=== PATIENT | female | born 1965 | race Caucasian/White ===

== ENCOUNTER → 2017-01-26 | Outpatient (CLI) | payer BC ==
--- NOTE | 2017-01-26 15:07 | RAD ---
Examination: 2 views of the bilateral knees History: History of chronic bilateral knee pain Comparison: None available Findings: ACL reconstruction changes identified in the right knee. There is severe joint space loss identified in the medial, lateral, patellofemoral compartments of the bilateral knees with large osteophyte formation. There are 2 calcific densities identified posterior to the proximal tibia fibular joint on the left could be soft tissue calcifications or loose bodies in the knee joint. Impression: 1. Severe tricompartmental knee joint osteoarthritis. 2. Two calcific densities identified posterior to the proximal tibiofibular joint on the left could be soft tissue calcifications or loose bodies in the knee joint.
== END | disposition home or self-care (01) ==
LOC: DXRADRC 11:37
PROVIDERS: ATTEND Physician Assistant
DX: M17.0 Bilateral primary osteoarthritis of knee (principal)
CPT/HCPCS: 73560

== ENCOUNTER → 2018-04-24 | Day surgery (SDC) | payer BC ==
[~2018-04-24] MED LIST: CELE200C PO; DEXT30TA2 PO; FLUO20TA11 PO; IV RINGERS SOLUTION,LACTATED 1,000 ML IV SCH; LIDOCAINE 1% PF 2 ML VIAL. ID PRN; OLAN5TAB9 PO; PROPOFOL 10,000 MCG/ML (20ML) VIAL IV ONE; PROPOFOL 20 ML IV ONE; VALS1TAB22 PO
[2018-04-24 13:35] VITALS: BP 155/98
== END | disposition home or self-care (01) ==
LOC: SURG 11:45
PROVIDERS: ATTEND Internal Medicine Gastroenterology
DX: Z12.11 Encounter for screening for malignant neoplasm of colon (principal); K64.8 Other hemorrhoids; Z83.71 Family history of colonic polyps; F41.9 Anxiety disorder, unspecified; F98.8 Other specified behavioral and emotional disorders with onset usually occurring in childhood and adolescence; Z90.49 Acquired absence of other specified parts of digestive tract; Z98.890 Other specified postprocedural states; Z72.89 Other problems related to lifestyle; Z79.899 Other long term (current) drug therapy
CPT/HCPCS: 45378; J2704; J7120

== ENCOUNTER → 2019-07-16 | Outpatient (CLI) | payer SELFPAY ==
[2018-04-24 13:35] VITALS: BP 155/98
[~2019-07-16] MED LIST changes: -IV RINGERS SOLUTION,LACTATED 1,000 ML IV SCH; -LIDOCAINE 1% PF 2 ML VIAL. ID PRN; -PROPOFOL 10,000 MCG/ML (20ML) VIAL IV ONE; -PROPOFOL 20 ML IV ONE
[2019-07-16 17:36] LABS: BASO % 0 % (0-3); EOS # 0.1 x10^3/uL (0.0-0.7); EOS % 1 % (0-3); HEMATOCRIT 50.7 % (36.0-47.0); HEMOGLOBIN 16.7 g/dL (12.0-15.5); LYMPH # 4.2 x10^3/uL (1.0-4.8); LYMPH % 38 % (24-48); MEAN CORPUSCULAR HEMOGLOBIN 28 pg (25-35); MEAN CORPUSCULAR HGB CONC 33 g/dL (31-37); MEAN CORPUSCULAR VOLUME 86 fL (79-100); MONO # 0.7 x10^3/uL (0.0-1.1); MONO % 7 % (0-9); NEUT # 5.8 x10^3uL (1.8-7.7); NEUT % 53 % (31-73); PLATELET COUNT 293 x10^3/uL (140-400); RED BLOOD COUNT 5.86 x10^6/uL (3.50-5.40); RED CELL DISTRIBUTION WIDTH 13.2 % (11.5-14.5); WHITE BLOOD COUNT 10.9 x10^3/uL (4.0-11.0)
[2019-07-16 17:44] LABS: ALBUMIN 3.9 g/dL (3.4-5.0); ALBUMIN/GLOBULIN RATIO 0.8 (1.0-1.7); CALCIUM 9.5 mg/dL (8.5-10.1); CREATININE 1.2 mg/dL (0.6-1.0); POTASSIUM 3.5 mmol/L (3.5-5.1); TOTAL BILIRUBIN 0.4 mg/dL (0.2-1.0); TOTAL PROTEIN 8.5 g/dL (6.4-8.2)
[2019-07-17 14:41] LABS: THYROID STIM HORMONE (TSH) 1.379 uIU/mL (0.358-3.740)
== END | disposition home or self-care (01) ==
LOC: LAB 16:59
PROVIDERS: ATTEND Family Medicine
DX: M35.3 Polymyalgia rheumatica (principal)
CPT/HCPCS: 36415; 80053; 80061; 82550; 84443; 85025